=== PATIENT | male | born 1955 | race Two or more races ===

== ENCOUNTER 2017-06-11 08:29 | Outpatient (CLI) | payer OTHER | END 2017-06-11 12:25 | disposition home or self-care (01) | LOC: SONOGRAMA 08:29 | DX: K30 Functional dyspepsia (principal) ==

== ENCOUNTER → 2019-03-14 | Outpatient (CLI) | payer OTHER | END | disposition home or self-care (01) | LOC: NUCLEAR 10:16 | DX: M81.0 Age-related osteoporosis without current pathological fracture (principal) ==

== ENCOUNTER → 2021-10-26 10:59 | Outpatient (CLI) | payer OTHER | END | disposition home or self-care (01) | LOC: NUCLEAR 10:59 | PROVIDERS: ATTEND Internal Medicine | DX: M81.0 Age-related osteoporosis without current pathological fracture (principal) ==